=== PATIENT | male | born 1985 | race Caucasian/White ===

== ENCOUNTER 2018-12-06 18:23 | Emergency (ER) | payer SELFPAY ==
[~2018-12-06] VITALS: Ht 185.4 cm; Wt 103.0 kg
[2018-12-06 18:45] VITALS: BP 126/69
== END 2018-12-06 19:08 | disposition home or self-care (01) ==
LOC: ER 18:34
DX: H66.92 Otitis media, unspecified, left ear (principal); F17.200 Nicotine dependence, unspecified, uncomplicated
CPT/HCPCS: 99283; A4606